=== PATIENT | female | born 1985 ===

== ENCOUNTER 2017-06-27 03:19 | Emergency (ER) | payer SELFPAY ==
[2017-06-27 03:31] VITALS: RESP 18; TEMP 98; O2SAT 98
--- NOTE | 2017-06-27 03:52 | ED PDOC ---
HPI: Back Time Seen by Provider: 06/27/17 03:50 Chief Complaint (Nursing): Back Pain Chief Complaint (Provider): neck strain History Per: Patient (31 y/o female here for evaluation of left sided neck pain radiating to left shoulder that has been worsening x 2 days. States she took 800mg motrin 30 min to arrival without relief. Patient states she has had recent miscarriage 2 weeks ago treated in [facility].) Past Medical History Reviewed: Historical Data, Nursing Documentation, Vital Signs Vital Signs: Last Vital Signs Temp 98.0 F 06/27/17 03:28 Pulse 89 06/27/17 03:28 Resp 18 06/27/17 03:28 BP 150/95 H 06/27/17 03:28 Pulse Ox 98 06/27/17 03:28 - Surgical History Surgical History: Cholecystectomy - Family History Family History: States: No Known Family Hx - Home Medications Home Medications: Ambulatory Orders Medication Instructions Recorded Nitrofurantoin Macrocrystals 100 mg PO BID #14 cap 03/03/15 [Macrobid] Naproxen 1 tab PO Q12 PRN #14 tab 06/27/17 diaZEpam [Valium] 5 mg PO Q6 PRN #8 tab 06/27/17 oxyCODONE/Acetaminophen [Percocet 1 ea PO Q6 PRN #10 tab 06/27/17 5/325 mg Tab] - Allergies Allergies/Adverse Reactions: Allergies Allergy/AdvReac Type Severity Reaction Status Date / Time No Known Allergies Allergy Verified 06/27/17 03:31 Review of Systems ROS Statement: Except As Marked, All Systems Reviewed And Found Negative Physical Exam - Reviewed Nursing Documentation Reviewed: Yes Vital Signs Reviewed: Yes - Physical Exam Appears: Positive for: Well, Non-toxic, No Acute Distress Head Exam: Positive for: ATRAUMATIC, NORMAL INSPECTION, NORMOCEPHALIC Skin: Positive for: Normal Color, Warm, DRY Eye Exam: Positive for: EOMI, Normal appearance, PERRL ENT: Positive for: Normal ENT Inspection Neck: Positive for: Normal, Painless ROM Cardiovascular/Chest: Positive for: Regular Rate, Rhythm Respiratory: Positive for: CNT, Normal Breath Sounds Gastrointestinal/Abdominal: Positive for: Normal Exam, Bowel Sounds, Soft Back: Positive for: Normal Inspection Extremity: Positive for: Normal ROM Neurologic/Psych: Positive for: Alert, Oriented - ECG O2 Sat by Pulse Oximetry: 98 - Progress ED Course And Treament: VALIUM 5 MG PO X 1 DOSE MORPHINE 4 MG IM X 1 DOSE Disposition - Clinical Impression Clinical Impression: Neck muscle strain - Patient ED Disposition Is Patient to be Admitted: No - Disposition Referrals: [facility] [Outside] Disposition: Routine/Home Disposition Time: 05:26 Condition: FAIR Prescriptions: diaZEpam [Valium] 5 mg PO Q6 PRN #8 tab PRN Reason: Muscle Spasm Naproxen 1 tab PO Q12 PRN #14 tab PRN Reason: Pain, Moderate (4-7) oxyCODONE/Acetaminophen [Percocet 5/325 mg Tab] 1 ea PO Q6 PRN #10 tab PRN Reason: Pain, Moderate (4-7) Instructions: Cervical Strain (GEN) Forms: [facility] (Danish), [facility] ED School/Work Excuse
[2017-06-27] MEDS ORDERED: Morphine 4 MG/ML VIAL IM STA (05:05)
[2017-06-27] MEDS ORDERED: Morphine 4 MG/ML VIAL ONE (05:13)
[2017-06-27 05:57] VITALS: BP 126/72; PULSE 78
== END 2017-06-27 05:58 | disposition home or self-care (01) ==
LOC: H.ER 03:19
DX: S16.1XXA Strain of muscle, fascia and tendon at neck level, initial encounter (principal); X50.9XXA Other and unspecified overexertion or strenuous movements or postures, initial encounter; Y92.89 Other specified places as the place of occurrence of the external cause
CPT/HCPCS: 81025; 96372; 99282; J2270

== ENCOUNTER 2017-11-14 02:12 | Emergency (ER) | payer OTHER ==
[2017-11-14 02:27] VITALS: BP 141/88; PULSE 97; RESP 18; TEMP 98; O2SAT 98
[2017-11-14] MEDS ORDERED: Sodium Chloride 0.9% 1,000 ML IV STA (02:42)
[2017-11-14] MEDS ORDERED: DiphenhydrAMINE 50 mg/ml Inj IV STA (02:43)
[2017-11-14] MEDS ORDERED: DiphenhydrAMINE 50 mg/ml Inj ONE (02:53)
--- NOTE | 2017-11-14 02:54 | ED PDOC ---
HPI: Headache Time Seen by Provider: 11/14/17 02:23 Chief Complaint (Nursing): Headache Chief Complaint (Provider): Headache History Per: Patient History/Exam Limitations: no limitations Onset/Duration Of Symptoms: Hrs (x 2), Intermittent Episodes (for many years) Associated Symptoms: denies: Nausea, Vomiting Additional Complaint(s): 32-year-old female presents to ED with headache x 2 hours. Patient reports headaches for many years that comes and goes. Patient reports same type of headache started again. Patient did not take anything for headache. Patient states she had not seen doctor for headache. Would usually go to clinic. Denies nausea or vomiting. Reports blurry vision with headache. Patient states she had a TDap vaccine 3 days ago at PCP to left deltoid. Since then, developed pain to left shoulder. PMD: [facility] Past Medical History Reviewed: Historical Data, Nursing Documentation, Vital Signs Vital Signs: Last Vital Signs Temp 98.0 F 11/14/17 02:23 Pulse 97 H 11/14/17 02:23 Resp 18 11/14/17 02:23 BP 141/88 11/14/17 02:23 Pulse Ox 98 11/14/17 02:23 - Medical History PMH: No Chronic Diseases - Surgical History Surgical History: Cholecystectomy - Family History Family History: States: Unknown Family Hx - Social History Current smoker - smoking cessation education provided: No Alcohol: None Drugs: Denies - Home Medications Home Medications: Ambulatory Orders Medication Instructions Recorded Nitrofurantoin Macrocrystals 100 mg PO BID #14 cap 03/03/15 [Macrobid] Naproxen 1 tab PO Q12 PRN #14 tab 06/27/17 diaZEpam [Valium] 5 mg PO Q6 PRN #8 tab 06/27/17 oxyCODONE/Acetaminophen [Percocet 1 ea PO Q6 PRN #10 tab 06/27/17 5/325 mg Tab] - Allergies Allergies/Adverse Reactions: Allergies Allergy/AdvReac Type Severity Reaction Status Date / Time No Known Allergies Allergy Verified 06/27/17 03:31 Review of Systems ROS Statement: Except As Marked, All Systems Reviewed And Found Negative Eyes: Positive for: Other (blurry vision) Gastrointestinal: Negative for: Nausea, Vomiting Neurological: Positive for: Headache Physical Exam - Reviewed Nursing Documentation Reviewed: Yes Vital Signs Reviewed: Yes - Physical Exam Appears: Positive for: Well, Non-toxic, No Acute Distress Head Exam: Positive for: ATRAUMATIC, NORMAL INSPECTION, NORMOCEPHALIC Skin: Positive for: Normal Color Eye Exam: Positive for: EOMI, Normal appearance, PERRL ENT: Positive for: Normal ENT Inspection Neck: Positive for: Normal Cardiovascular/Chest: Positive for: Regular Rate, Rhythm Respiratory: Positive for: Normal Breath Sounds. Negative for: Respiratory Distress Gastrointestinal/Abdominal: Positive for: Normal Exam, Soft. Negative for: Tenderness Back: Positive for: Normal Inspection, Other (Tenderness in palpation to left trapezius muscle) Extremity: Positive for: Normal ROM. Negative for: Deformity Neurologic/Psych: Positive for: Alert, Oriented (x 3). Negative for: Motor/ Sensory Deficits - Laboratory Results Result Diagrams: 11/14/17 03:40 11/14/17 03:40 - ECG O2 Sat by Pulse Oximetry: 98 (RA) Pulse Ox Interpretation: Normal Medical Decision Making Medical Decision Making: Time: 02:42 Impression(s): Headache recurrent episodes of chronic headaches, Left Shoulder Pain Plan: - CT Head w/o Contrast - BMP - CBC - Benadryl 25 mg IV - Sodium Chloride 0.9% 1,000 ml IV 1,000 mls/hr - Reglan 10 mg Sodium Chloride 0.9% 50 ml - Toradol 30 mg IVP Time: 04:04 CT Head w/o Contrast FINDINGS: Brain: No intracranial hemorrhage. No mass. No definite edema. Ventricles: No hydrocephalus. Bones/joints: No acute fracture. Soft tissues: Unremarkable. Sinuses: No acute sinusitis. Mastoid air cells: No mastoid effusion. Orbits: Unremarkable as visualized. IMPRESSION: 1. No definite acute intracranial abnormality. 0500 Patient significantly improved and comfortably sleeping. Upon provider evaluation patient is medically stable, and requires no further treatment in the ED at this time. Patient will be discharged. Counseling was provided and all questions were answered regarding diagnosis and need for follow up with PCP. There is agreement to discharge plan. Return if symptoms persist or worsen. Scribe Attestation: Documented by Bryan Lemos, acting as a scribe for Guido Andino MD. Provider Scribe Attestation: All medical record entries made by the Scribe were at my direction and personally dictated by me. I have reviewed the chart and agree that the record accurately reflects my personal performance of the history, physical exam, medical decision making, and the department course for this patient. I have also personally directed, reviewed, and agree with the discharge instructions and disposition. Disposition - Clinical Impression Clinical Impression: Headache - Patient ED Disposition Is Patient to be Admitted: No Doctor Will See Patient In The: Office Counseled Patient/Family Regarding: Studies Performed, Diagnosis, Need For Followup - Disposition Referrals: [facility] [Outside] Danie Kapadia MD [Staff Provider] - Disposition: Routine/Home Disposition Time: 05:22 Condition: GOOD Additional Instructions: Take motrin for headaches. Follow up with your PCP in 2-3 days. Instructions: Headache, Adult
[2017-11-14 03:44] LABS: BASO % 0.3 % (0.0-2.0); EOS # 0.1 K/uL (0.0-0.7); EOS % 1.7 % (0.0-4.0); HEMOGLOBIN 13.1 g/dL (12.0-16.0); LYMPH # 2.5 K/uL (1.0-4.3); LYMPH % 31.5 % (20.0-40.0); MEAN CORPUSCULAR HEMOGLOBIN 29.2 pg (27.0-31.0); MEAN CORPUSCULAR HGB CONC 35.4 g/dL (33.0-37.0); MEAN PLATELET VOLUME 8.2 fl (7.2-11.7); MONO # 0.5 K/uL (0.0-0.8); MONO % 6.7 % (0.0-10.0); NEUT # 4.8 K/uL (1.8-7.0); NEUT % 59.8 % (50.0-75.0); NRBC % 0.1 % (0.0-0.0); RBC 4.47 Mil/uL (3.80-5.20); RED CELL DISTRIBUTION WIDTH 12.9 % (11.5-14.5); WHITE BLOOD COUNT 8.1 K/uL (4.8-10.8)
[2017-11-14 03:54] LABS: MEAN CELL VOLUME 82.6 fl (81.0-99.0)
[2017-11-14 03:59] LABS: BLOOD UREA NITROGEN 12 mg/dl (7-17); CALCIUM 9.5 mg/dL (8.4-10.2); GFR AFRICAN-AMERICAN > 60; GFR NON-AFRICAN AMERICAN > 60
--- NOTE | 2017-11-14 04:05 | CT ---
EXAM: CT Head Without Intravenous Contrast CLINICAL HISTORY: 32 years old, female; Pain; Headache TECHNIQUE: Axial computed tomography images of the head/brain without intravenous contrast. All CT scans at this facility use one or more dose reduction techniques, viz.: automated exposure control; ma/kV adjustment per patient size (including targeted exams where dose is matched to indication; i.e. head); or iterative reconstruction technique. Coronal and sagittal reformatted images were created and reviewed. COMPARISON: No relevant prior studies available. FINDINGS: Brain: No intracranial hemorrhage. No mass. No definite edema. Ventricles: No hydrocephalus. Bones/joints: No acute fracture. Soft tissues: Unremarkable. Sinuses: No acute sinusitis. Mastoid air cells: No mastoid effusion. Orbits: Unremarkable as visualized. IMPRESSION: 1. No definite acute intracranial abnormality.
== END 2017-11-14 05:42 | disposition home or self-care (01) ==
LOC: H.ER 02:12
DX: R51 Headache (principal)
CPT/HCPCS: 70450; 80048; 81025; 85025; 96361; 96374; 96375; 99284; J1200; J1885; J2765; J7040

== ENCOUNTER 2018-02-16 00:02 | Emergency (ER) | payer SELFPAY ==
[2018-02-16 00:25] VITALS: O2SAT 100
--- NOTE | 2018-02-16 01:03 | ED PDOC ---
HPI: Trauma/Fall - HPI Time Seen by Provider: 02/16/18 00:33 Chief Complaint (Nursing): Trauma Chief Complaint (Provider): fall: back, hip, abdomen pain History Per: Patient History/Exam Limitations: no limitations Injury Occurred (Timing): Days Ago: (2) Additional Complaint(s): 32 y/o female, approximately 5 weeks gestation, ambulates to ED for evaluation of back, leg, and abdominal pain x 2 days. Patient states she slipped on wet street and landed on buttocks; since then reports low back pain, pain to right hip when ambulating and right lower abdominal pain. Denies head injury, nausea/ vomiting, chest pain, numbness/weakness of extremities, bowel/bladder incontinence, vaginal bleeding A2 Past Medical History Reviewed: Historical Data, Nursing Documentation, Vital Signs Vital Signs: Last Vital Signs Temp 98.9 F 02/16/18 00:23 Pulse 110 H 02/16/18 00:23 Resp 20 02/16/18 00:23 BP 138/87 02/16/18 00:23 Pulse Ox 100 02/16/18 00:23 - Medical History PMH: Migraine - Surgical History Surgical History: Cholecystectomy - Family History Family History: States: Unknown Family Hx - Home Medications Home Medications: Ambulatory Orders Medication Instructions Recorded Nitrofurantoin Macrocrystals 100 mg PO BID #14 cap 03/03/15 [Macrobid] Naproxen 1 tab PO Q12 PRN #14 tab 06/27/17 diaZEpam [Valium] 5 mg PO Q6 PRN #8 tab 06/27/17 oxyCODONE/Acetaminophen [Percocet 1 ea PO Q6 PRN #10 tab 06/27/17 5/325 mg Tab] - Allergies Allergies/Adverse Reactions: Allergies Allergy/AdvReac Type Severity Reaction Status Date / Time No Known Allergies Allergy Verified 02/16/18 00:22 Review of Systems ROS Statement: Except As Marked, All Systems Reviewed And Found Negative Gastrointestinal: Positive for: Abdominal Pain Musculoskeletal: Positive for: Back Pain, Leg Pain Physical Exam - Reviewed Nursing Documentation Reviewed: Yes Vital Signs Reviewed: Yes - Physical Exam Appears: Positive for: Well, Non-toxic, No Acute Distress Head Exam: Positive for: ATRAUMATIC, NORMAL INSPECTION, NORMOCEPHALIC Skin: Positive for: Normal Color Eye Exam: Positive for: Normal appearance ENT: Positive for: Normal ENT Inspection Cardiovascular/Chest: Positive for: Regular Rate, Rhythm Respiratory: Positive for: Normal Breath Sounds Gastrointestinal/Abdominal: Positive for: Bowel Sounds, Soft, Tenderness (right pelvic tenderness) Back: Positive for: Muscle Spasm (bilateral lumbar paravertebral tenderness). Negative for: L CVA Tenderness, R CVA Tenderness, Vertebral Tenderness, Decreased ROM Extremity: Positive for: Normal ROM, Tenderness (right hip; no edema, bony deformity, leg shortening noted). Negative for: Swelling Neurologic/Psych: Positive for: Alert, Oriented (x3) - Laboratory Results Result Diagrams: 02/16/18 01:50 02/16/18 01:50 - ECG O2 Sat by Pulse Oximetry: 100 - Progress ED Course And Treament: labs, u/s, PO tylenol Patient educated on findings and on risks of radiation exposure during ; agreeable with plan to medicate with tylenol EXAM: US , Transvaginal CLINICAL HISTORY: 32 years old, female; Pain; Other: Slip and fall landing on buttocks; Gestational age or lmp: 12/30/2017; ; Patient HX: Pt states on 01/15/18 she slipped and fell on wet floor landing on buttocks; Additional info: ; Trauma (fall) TECHNIQUE: Real-time transvaginal obstetrical ultrasound of the maternal pelvis and a first trimester with image documentation. Transvaginal imaging was used for better evaluation of the fetus and adnexa. COMPARISON: No relevant prior studies available. FINDINGS: Gestation: Anechoic structure in the endometrium measuring 4.4 mm. There is no pole or cardiac activity. There is no yolk sac observed Placenta/amniotic fluid: Cannot be adequately evaluated due to the early gestational age. Uterus/cervix: Nabothian cyst noted. No myometrial mass. Ovaries: Nonvisualized right ovary. Simple cyst in the left ovary measuring 2.1 cm. Normal flow to the left ovary Free fluid: No free fluid. IMPRESSION: Intrauterine cannot be confirmed nor excluded. Short term sonographic followup and correlation with serial beta hCG levels as clinically indicated Patient educated on findings, discharged with instructions to follow up in 48 hours for re-eval Advised Tylenol PRN pain. Warm compresses Return precautions given Disposition - Clinical Impression Clinical Impression: Abdominal pain during , Low back strain, Contusion of hip, right, Threatened miscarriage - Patient ED Disposition Is Patient to be Admitted: No Counseled Patient/Family Regarding: Studies Performed, Diagnosis, Need For Followup - Disposition Referrals: Davida Gamez MD [Primary Care Provider] - [facility] [Outside] Disposition: Routine/Home Disposition Time: 05:32 Condition: IMPROVED Additional Instructions: Follow up in 48 hours for re-evaluation Take Tylenol as directed, as needed for pain Apply warm compresses to affected areas Return to ED for worsening/concerning symptoms. Instructions: Muscle Strain, Low Back Pain in Adults, Threatened Miscarriage Forms: [facility] [employer] ([place])
[2018-02-16 01:58] LABS: BASO # 0.1 K/uL (0.0-0.2); BASO % 0.7 % (0.0-2.0); EOS # 0.2 K/uL (0.0-0.7); EOS % 2.1 % (0.0-4.0); HEMOGLOBIN 12.3 g/dL (12.0-16.0); LYMPH # 3.1 K/uL (1.0-4.3); LYMPH % 33.4 % (20.0-40.0); MEAN CELL VOLUME 82.7 fl (81.0-99.0); MEAN CORPUSCULAR HEMOGLOBIN 28.1 pg (27.0-31.0); MEAN PLATELET VOLUME 7.7 fl (7.2-11.7); MONO # 0.6 K/uL (0.0-0.8); MONO % 6.9 % (0.0-10.0); NEUT # 5.3 K/uL (1.8-7.0); NEUT % 56.9 % (50.0-75.0); NRBC % 0.1 % (0.0-0.0); RBC 4.37 Mil/uL (3.80-5.20); WHITE BLOOD COUNT 9.4 K/uL (4.8-10.8)
[2018-02-16 02:08] LABS: ALB/GLOB RATIO 1.2 (1.0-2.1); ALBUMIN 3.8 g/dL (3.5-5.0); ALT/SGPT 45 U/L (9-52); AST/SGOT 39 U/L (14-36); BLOOD UREA NITROGEN 7 mg/dl (7-17); CALCIUM 9.2 mg/dL (8.4-10.2); GFR NON-AFRICAN AMERICAN > 60
[2018-02-16 04:44] VITALS: BP 123/87; PULSE 87; RESP 17; TEMP 98.2
--- NOTE | 2018-02-16 11:44 | US ---
Date of service: 02/16/2018 PROCEDURE: OB Pelvic Ultrasound HISTORY: ; trauma COMPARISON: None available. FINDINGS: UTERUS: There is a subcentimeter round anechoic area in the superior endometrium with apparent decidual reaction. No yolk sac or pole visualized. Isi-gestational hemorrhage: None. Uterus measures 10.3 x 6.3 x 4.5 cm. No mass CERVIX: Long and closed. No cervical abnormality seen. RIGHT OVARY: Not visualized. LEFT OVARY: Measures 4.3 x 2.7 x 2.3 cm. No mass. Normal flow. There is a 2.1 x 1.4 x 1.9 cm cyst. FREE FLUID: None. OTHER FINDINGS: None. IMPRESSION: No acute findings. Subcentimeter round anechoic structure in the superior endometrium with apparent decidual reaction could represent early gestational sac. Intrauterine cannot be confirmed or excluded on this examination. Clinical follow-up, serial beta HCG levels and short-term ultrasound follow-up is recommended to assess viability. A preliminary report was provided by [facility].
== END 2018-02-16 05:39 | disposition home or self-care (01) ==
LOC: H.ER 00:02
DX: O26.91 Pregnancy related conditions, unspecified, first trimester (principal); S39.012A Strain of muscle, fascia and tendon of lower back, initial encounter; O20.0 Threatened abortion; S70.01XA Contusion of right hip, initial encounter; O9A.211 Injury, poisoning and certain other consequences of external causes complicating pregnancy, first trimester; W01.0XXA Fall on same level from slipping, tripping and stumbling without subsequent striking against object, initial encounter; Z3A.01 Less than 8 weeks gestation of pregnancy

== ENCOUNTER 2018-03-04 23:27 | Emergency (ER) | payer SELFPAY ==
[2018-03-04 23:30] VITALS: BMI 49.4
[2018-03-04 23:31] VITALS: TEMP 97.1; O2SAT 97
[2018-03-05 00:15] VITALS: RESP 16
--- NOTE | 2018-03-05 01:18 | ED PDOC ---
HPI: Abdomen Time Seen by Provider: 03/05/18 00:34 Chief Complaint (Nursing): Abdominal Pain Chief Complaint (Provider): abdominal pain History Per: Patient History/Exam Limitations: no limitations Onset/Duration Of Symptoms: Days (x3 weeks) Current Symptoms Are (Timing): Still Present Location Of Pain/Discomfort: Other (lower) Associated Symptoms: Urinary Symptoms (mild dysuria), Other (vaginal spotting) Additional Complaint(s): Uzma Livingston is a 32 year old female, with no significant past medical history, who presents to the emergency department complaining of a lower abdominal pain onset for x3 weeks associated with some mild dysuria and vaginal spotting. Patient is A2, EGA x9 weeks. Patient states she had fallen x4 weeks ago, she was evaluated in ER and discharged. At that time she had no identifiable and had to follow up with OB but couldn't because of [facility] care problems. Patient states she hasn't been able to schedule the follow up. She denies any other medical complaints. PMD: Clinic. : 6 Para: 3 Miscarriage: 2 Past Medical History Reviewed: Historical Data, Nursing Documentation, Vital Signs Vital Signs: Last Vital Signs Temp 97.1 F L 03/05/18 00:08 Pulse 100 H 03/05/18 00:08 Resp 16 03/05/18 00:08 BP 130/87 03/05/18 00:08 Pulse Ox 97 03/05/18 02:30 - Medical History PMH: Migraine - Surgical History Surgical History: Cholecystectomy, - Family History Family History: States: Unknown Family Hx - Social History Current smoker - smoking cessation education provided: No Alcohol: None Drugs: Denies - Home Medications Home Medications: Ambulatory Orders Medication Instructions Recorded Nitrofurantoin Macrocrystals 100 mg PO BID #14 cap 03/03/15 [Macrobid] Naproxen 1 tab PO Q12 PRN #14 tab 06/27/17 diaZEpam [Valium] 5 mg PO Q6 PRN #8 tab 06/27/17 oxyCODONE/Acetaminophen [Percocet 1 ea PO Q6 PRN #10 tab 06/27/17 5/325 mg Tab] - Allergies Allergies/Adverse Reactions: Allergies Allergy/AdvReac Type Severity Reaction Status Date / Time No Known Allergies Allergy Verified 02/16/18 00:22 Review of Systems ROS Statement: Except As Marked, All Systems Reviewed And Found Negative Gastrointestinal: Positive for: Abdominal Pain Genitourinary Female: Positive for: Dysuria (mild), Other (vaginal spotting) Physical Exam - Reviewed Nursing Documentation Reviewed: Yes Vital Signs Reviewed: Yes - Physical Exam Appears: Positive for: No Acute Distress Head Exam: Positive for: ATRAUMATIC, NORMAL INSPECTION, NORMOCEPHALIC Skin: Positive for: Normal Color, Warm, Dry Eye Exam: Positive for: Normal appearance, EOMI, PERRL Neck: Positive for: Painless ROM Cardiovascular/Chest: Positive for: Regular Rate, Rhythm. Negative for: Murmur Respiratory: Positive for: Normal Breath Sounds. Negative for: Respiratory Distress Gastrointestinal/Abdominal: Positive for: Normal Exam (obese), Soft. Negative for: Tenderness Back: Positive for: Normal Inspection Extremity: Positive for: Normal ROM (upper and lower extremities). Negative for : Deformity, Swelling Neurologic/Psych: Positive for: Alert, Oriented. Negative for: Motor/Sensory Deficits - Laboratory Results Result Diagrams: 03/05/18 01:21 - ECG O2 Sat by Pulse Oximetry: 97 (RA) Pulse Ox Interpretation: Normal Medical Decision Making Medical Decision Making: Time: 00:34 Initial Impression: 32 y/o female with abdominal pain in early Initial Plan: --Beta-HCG, Quantitative --Urine dipstick --CBC w/ differential --Urinalysis --Transvaginal [US] --Reevaluation 02:15 Transvaginal US FINDINGS: Gestation: Probable gestational sac. No yolk sac. No pole. Mean sac diameter of 1.7 cm, correlating with gestational age of 6 weeks 0 days. Uterus/cervix: No subchorionic hemorrhage. Closed cervix. Ovaries: RIGHT ovary: Not visualized. LEFT ovary: 3.4 x 2.7 x 2.6 cm anechoic lesion. No adnexal masses. Free fluid: No significant free fluid. IMPRESSION: 1. Findings suspicious but not diagnostic of failure. Short-term sonographic followup is recommended. 2. LEFT ovarian cyst. 02:45 -Labs reviewed and showed no clinical significant abnormalities. Patient informed of results and likely failure of as well as miscarriage. Patient will follow with [facility] for additional testing. Diagnosis of threatened miscarriage. ----- Scribe Attestation: Documented by Eduardo Quigley, acting as a scribe for Wilfred Parikh MD. Provider Scribe Attestation: All medical record entries made by the Scribe were at my direction and personally dictated by me. I have reviewed the chart and agree that the record accurately reflects my personal performance of the history, physical exam, medical decision making, and the department course for this patient. I have also personally directed, reviewed, and agree with the discharge instructions and disposition. Disposition - Clinical Impression Clinical Impression: Threatened miscarriage in early - Disposition Referrals: [facility] [Outside] Disposition: Routine/Home Disposition Time: 02:45 Condition: STABLE Instructions: Threatened Miscarriage Forms: [facility] (Mosotho)
[2018-03-05 01:28] LABS: BASO # 0.1 K/uL (0.0-0.2); BASO % 0.9 % (0.0-2.0); EOS # 0.1 K/uL (0.0-0.7); EOS % 1.3 % (0.0-4.0); HEMOGLOBIN 12.9 g/dL (12.0-16.0); LYMPH # 2.6 K/uL (1.0-4.3); LYMPH % 30.7 % (20.0-40.0); MEAN CELL VOLUME 82.6 fl (81.0-99.0); MEAN CORPUSCULAR HGB CONC 33.9 g/dL (33.0-37.0); MEAN PLATELET VOLUME 8.2 fl (7.2-11.7); MONO # 0.5 K/uL (0.0-0.8); MONO % 5.8 % (0.0-10.0); NEUT # 5.3 K/uL (1.8-7.0); NEUT % 61.3 % (50.0-75.0); RBC 4.61 Mil/uL (3.80-5.20); RED CELL DISTRIBUTION WIDTH 14.5 % (11.5-14.5); WHITE BLOOD COUNT 8.6 K/uL (4.8-10.8)
[2018-03-05 01:40] LABS: SQUAMOUS EPITHIAL 3 /hpf (0-5); URINE BACTERIA RARE (<OCC); URINE BILIRUBIN NEGATIVE (NEGATIVE); URINE BLOOD SMALL (NEGATIVE); URINE CLARITY SLIGHTY-CLOUDY (Clear); URINE COLOR YELLOW (YELLOW); URINE GLUCOSE (UA) NEG (Normal); URINE HYALINE CAST 0-2 /hpf (0-2); URINE LEUKOCYTE ESTERASE NEG Leu/uL (Negative); URINE PROTEIN NEGATIVE (NEGATIVE)
[2018-03-05 03:11] VITALS: BP 129/82; PULSE 89
--- NOTE | 2018-03-05 09:56 | US ---
Date of service: 03/05/2018 PROCEDURE: OB Pelvic Ultrasound HISTORY: bleeding in preg LMP: 12/30/2017 COMPARISON: Pelvic ultrasound dated 02/16/2018 FINDINGS: UTERUS: Gestational sac: Intrauterine gestational sac measuring 1.7 cm compatible with estimated gestational age of 6 weeks, 0 days. Yolk sac. Not visualized. pole: Not visualized. Isi-gestational hemorrhage: None. Date of delivery (Ultrasound estimated) : 10/29/2018 Uterus measures 9.3 x 5.3 x 6.2 cm. Anteverted. Normal in size and appearance. CERVIX: Measures 4.4 cm. Long and closed. No cervical abnormality seen. RIGHT OVARY: Not visualized. LEFT OVARY: Measures 4.1 x 3.0 x 4.0 cm. Cyst measuring 3.4 x 2.7 x 2.6 cm. No solid mass. Normal flow. FREE FLUID: None. OTHER FINDINGS: None. IMPRESSION: Intrauterine gestational sac with average ultrasound age of 6 weeks, 0 days. Yolk sac and pole not yet identified. Findings may represent early normal/ abnormal . Close clinical follow-up with serial pelvic sonography and serum beta HCG levels is recommended.
== END 2018-03-05 03:05 | disposition home or self-care (01) ==
LOC: H.ER 23:27
DX: O20.0 Threatened abortion (principal); N83.202 Unspecified ovarian cyst, left side

== ENCOUNTER 2018-10-26 21:12 | Emergency (ER) | payer SELFPAY ==
[2018-10-26 21:13] VITALS: BMI 49.4
[2018-10-26 21:17] VITALS: RESP 18
--- NOTE | 2018-10-26 22:46 | ED PDOC ---
Lower Extremity Pain/Injury Time Seen by Provider: 10/26/18 21:24 Chief Complaint (Nursing): Lower Extremity Problem/Injury Additional Complaint(s): 32 yo F who is 14 weeks A2 with no care is brought in by EMS after falling as she stepped off a curb and inverted her right ankle. she landed on her right side. SHe has not been able to get up or walk do to the pain. Pt reports diffuse pain to ankle. She denies hitting her stomach, denies abdominal pain, vaginal bleeding or urinary symptoms. denies head injury or loc, no other injuries. LMP: May 2018 PMD: none OBGYN: none Past Medical History Reviewed: Historical Data, Nursing Documentation, Vital Signs Vital Signs: Last Vital Signs Temp 97.8 F 10/26/18 21:14 Pulse 104 H 10/26/18 21:14 Resp 18 10/26/18 21:14 BP 149/83 10/26/18 21:14 Pulse Ox 99 10/26/18 21:14 - Medical History PMH: Migraine - Surgical History Surgical History: Cholecystectomy, - Family History Family History: States: Unknown Family Hx - Social History Current smoker - smoking cessation education provided: No Alcohol: None Drugs: Denies - Home Medications Home Medications: Ambulatory Orders Medication Instructions Recorded Nitrofurantoin Macrocrystals 100 mg PO BID #14 cap 03/03/15 [Macrobid] Naproxen 1 tab PO Q12 PRN #14 tab 06/27/17 diaZEpam [Valium] 5 mg PO Q6 PRN #8 tab 06/27/17 oxyCODONE/Acetaminophen [Percocet 1 ea PO Q6 PRN #10 tab 06/27/17 5/325 mg Tab] - Allergies Allergies/Adverse Reactions: Allergies Allergy/AdvReac Type Severity Reaction Status Date / Time No Known Allergies Allergy Verified 02/16/18 00:22 Physical Exam - Reviewed Nursing Documentation Reviewed: Yes - Physical Exam Comments: GENERALIZED APPEARANCE: Patient is awake, alert, oriented x3 in no acute distress, obese SKIN: Warm, dry; (-) cyanosis. LOWER EXTREMITY: Ankle: mild swelling, tenderness of the medial aspect of the ankle; mild swelling and tenderness of the lateral ankle, (+) medial and lateral malleolus tenderness, mild tenderness to distal lateral leg, mild tenderness to top of foot (+) limited range of motion secondary to pain. Achilles tendon intact and nontender.pulses +2, capillary refill <2sec, NVI, no deformity, abrasions or lacerations CARDIOVASCULAR: (+) distal pulse. ABDOMEN AND GI: Soft; (-) tenderness; (-) palpable mass (-)ecchymosis NEUROLOGIC: (+) distal sensation. - ECG O2 Sat by Pulse Oximetry: 99 Medical Decision Making Medical Decision Makin:30 impression: sprain vs fracture XR foot, ankle, tib fib Tylenol PO MFM RN came down to do heart tones which were 138 22:30 Xrays reviewed by me show no acute fractures or dislocation, mortise in tact pt reports pain improved, but continues medial and lateral mall tenderness, will consult podiatry 22:40 spoke to Cristobal from podiatry, looked at Xrays and agrees no fractures, recomme nds brenna wrap, air cast/surgical shoe, crutches non weight bearing and they can see her wednesday in clinic brenna wrap, air cast and crutches placed by tech, pt has difficulty with crutches due to weight, able to take a few non weight bearing steps, discussed to rest, ice and elevate, non weight bearing as much as possible until follow up Discussed results, diagnosis, treatment, return precautions and f/u with pt who si understanding, i nagreement and stable for dc Disposition - Clinical Impression Clinical Impression: Ankle sprain - Patient ED Disposition Is Patient to be Admitted: No Counseled Patient/Family Regarding: Studies Performed, Diagnosis, Need For Follo wup, Rx Given - Disposition Referrals: Podiatry Clinic [Outside] Disposition: Routine/Home Disposition Time: 23:04 Condition: STABLE Additional Instructions: Tylenol is safe in . Follow up with podiatry clinic as listed. Thank you for letting us take care of you today. You were treated for ankle sprain. The emergency medical care you received today was directed at your acute symptoms. If you were prescribed any medication, please fill it and take as directed. It may take several days for your symptoms to resolve. Return to the Emergency Department if your symptoms worsen, do not improve, or if you have any other problems. Please contact your doctor in 2 days for re-evaluation and follow up / or call one of the physicians/clinics you have been referred to that are listed on the Patient Visit Information form that is included in your discharge packet. Bring any paperwork you were given at discharge with you along with any medications you are taking to your follow up visit. Our treatment cannot replace ongoing medical care by a primary care provider (PCP) outside of the emergency department. Instructions: Ankle Sprain (DC) Forms: [facility] (Omani) Print Language: YORUBA - POA Present On Arrival: None
[2018-10-26 23:17] VITALS: BP 128/78; PULSE 78; TEMP 98
[2018-10-27 00:11] VITALS: O2SAT 99
--- NOTE | 2018-10-27 10:56 | RAD ---
Date of service: 10/26/2018 PROCEDURE: Right Foot Radiographs. HISTORY: fall COMPARISON: None. TECHNIQUE: 3 views obtained. FINDINGS: BONES: Bone alignment and mineralization are normal. There is no acute displaced fracture or bone destruction. JOINTS: Normal. SOFT TISSUES: Normal. OTHER FINDINGS: None. IMPRESSION: No acute displaced fracture or dislocation.
--- NOTE | 2018-10-27 10:57 | RAD ---
Date of service: 10/26/2018 PROCEDURE: Right Ankle Radiographs. HISTORY: fall COMPARISON: None available. TECHNIQUE: 3 views obtained. FINDINGS: BONES: Bone alignment and mineralization are normal. There is no acute displaced fracture or bone destruction. JOINTS: Normal. No osteoarthritis. Ankle mortise maintained. Talar dome intact SOFT TISSUES: Mild periarticular soft tissue swelling. OTHER FINDINGS: None. IMPRESSION: No acute displaced fracture or dislocation.
--- NOTE | 2018-10-27 10:58 | RAD ---
Date of service: 10/26/2018 PROCEDURE: Radiographs of the right tibia and fibula. HISTORY: fall COMPARISON: None available TECHNIQUE: Frontal and lateral views obtained. 2 views obtained. FINDINGS: BONES: Bone alignment and mineralization are normal. There is no acute displaced fracture or bone destruction. JOINT SPACES: Unremarkable. OTHER FINDINGS: None. IMPRESSION: No acute fracture or dislocation.
== END 2018-10-26 23:17 | disposition home or self-care (01) ==
LOC: H.ER 21:12
DX: S93.401A Sprain of unspecified ligament of right ankle, initial encounter (principal); X50.9XXA Other and unspecified overexertion or strenuous movements or postures, initial encounter; Y92.89 Other specified places as the place of occurrence of the external cause; Z33.1 Pregnant state, incidental